=== PATIENT | male | born 2000 | race African-American/Black ===

== ENCOUNTER 2023-09-03 09:36 | Emergency (ER) | payer OTHER ==
[~2023-09-03] VITALS: Ht 182.9 cm; Wt 110.4 kg
[2023-09-03] MEDS ORDERED: HOME MED LIST COMPLETE! XX SCH (12:35)
[2023-09-03] MEDS ORDERED: CYCL-707 PO (13:45)
[2023-09-03] MEDS ORDERED: NAPR-837 PO (13:45)
[2023-09-03 13:51] VITALS: BP 123/61; TEMP 97.9; O2SAT 100
== END 2023-09-03 13:55 | disposition home or self-care (01) ==
LOC: M ED 09:36
DX: M54.50 Low back pain, unspecified (principal); V43.62XA Car passenger injured in collision with other type car in traffic accident, initial encounter; Y92.9 Unspecified place or not applicable; Y93.9 Activity, unspecified; Y99.9 Unspecified external cause status

== ENCOUNTER 2025-03-23 14:11 | Emergency (ER) | payer OTHER ==
[~2025-03-23] VITALS: Ht 188 cm; Wt 101.2 kg
[~2025-03-23 14:11] MED LIST: CYCL-707 PO; NAPR-837 PO
[2025-03-23 16:11] VITALS: BP 131/64; TEMP 99.5; O2SAT 97
== END 2025-03-23 16:12 | disposition home or self-care (01) ==
LOC: M ED 14:11
DX: R05.9 Cough, unspecified (principal); B97.4 Respiratory syncytial virus as the cause of diseases classified elsewhere